=== PATIENT | male | born 1935 | race Caucasian/White ===

== ENCOUNTER → 2018-09-24 14:18 | Outpatient (CLI) | payer MEDICARE, SELFPAY | PROVIDERS: PCP Internal Medicine; Visit Provider Family Medicine | DX: S81.801A Unspecified open wound, right lower leg, initial encounter (principal); E11.622 Type 2 diabetes mellitus with other skin ulcer; I73.9 Peripheral vascular disease, unspecified; Z99.2 Dependence on renal dialysis | CPT/HCPCS: 11043; 87070; 87075; 87205; 93922; 99203; 99212 ==

== ENCOUNTER → 2018-10-01 10:40 | Outpatient (CLI) | payer MEDICARE, SELFPAY | PROVIDERS: PCP Internal Medicine; Visit Provider Family Medicine | DX: I70.238 Atherosclerosis of native arteries of right leg with ulceration of other part of lower leg (principal); L97.815 Non-pressure chronic ulcer of other part of right lower leg with muscle involvement without evidence of necrosis; E11.622 Type 2 diabetes mellitus with other skin ulcer; Z99.2 Dependence on renal dialysis | CPT/HCPCS: 97597 ==

== ENCOUNTER → 2018-10-09 13:12 | Outpatient (CLI) | payer MEDICARE, SELFPAY | PROVIDERS: PCP Internal Medicine; Visit Provider Family Medicine | DX: I70.238 Atherosclerosis of native arteries of right leg with ulceration of other part of lower leg (principal); L97.815 Non-pressure chronic ulcer of other part of right lower leg with muscle involvement without evidence of necrosis | CPT/HCPCS: 99213 ==

== ENCOUNTER → 2018-10-15 14:48 | Outpatient (CLI) | payer MEDICARE, SELFPAY | PROVIDERS: PCP Internal Medicine; Visit Provider Family Medicine | DX: E11.622 Type 2 diabetes mellitus with other skin ulcer (principal); L97.813 Non-pressure chronic ulcer of other part of right lower leg with necrosis of muscle; I73.9 Peripheral vascular disease, unspecified; Z99.2 Dependence on renal dialysis | CPT/HCPCS: 11043 ==

== ENCOUNTER → 2018-10-23 10:28 | Outpatient (CLI) | payer MEDICARE, SELFPAY | PROVIDERS: PCP Internal Medicine; Visit Provider Family Medicine | DX: I70.238 Atherosclerosis of native arteries of right leg with ulceration of other part of lower leg (principal); L97.815 Non-pressure chronic ulcer of other part of right lower leg with muscle involvement without evidence of necrosis; E11.622 Type 2 diabetes mellitus with other skin ulcer | CPT/HCPCS: 11042 ==

== ENCOUNTER → 2018-10-31 10:13 | Outpatient (CLI) | payer MEDICARE, SELFPAY | PROVIDERS: PCP Internal Medicine; Visit Provider Family Medicine | DX: I70.238 Atherosclerosis of native arteries of right leg with ulceration of other part of lower leg (principal); L97.812 Non-pressure chronic ulcer of other part of right lower leg with fat layer exposed | CPT/HCPCS: 97597 ==

== ENCOUNTER → 2018-11-13 14:07 | Outpatient (CLI) | payer MEDICARE, SELFPAY | PROVIDERS: PCP Internal Medicine; Visit Provider Family Medicine | DX: E11.622 Type 2 diabetes mellitus with other skin ulcer (principal); I70.238 Atherosclerosis of native arteries of right leg with ulceration of other part of lower leg; L97.812 Non-pressure chronic ulcer of other part of right lower leg with fat layer exposed | CPT/HCPCS: 11042 ==

== ENCOUNTER → 2018-11-19 15:19 | Outpatient (CLI) | payer MEDICARE, SELFPAY | PROVIDERS: PCP Internal Medicine; Visit Provider Family Medicine | DX: E11.622 Type 2 diabetes mellitus with other skin ulcer (principal); L97.813 Non-pressure chronic ulcer of other part of right lower leg with necrosis of muscle; I73.9 Peripheral vascular disease, unspecified; Z99.2 Dependence on renal dialysis | CPT/HCPCS: 99213 ==

== ENCOUNTER → 2018-12-03 10:27 | Outpatient (CLI) | payer MEDICARE, SELFPAY | PROVIDERS: PCP Internal Medicine; Visit Provider Family Medicine | DX: I70.238 Atherosclerosis of native arteries of right leg with ulceration of other part of lower leg (principal); L97.811 Non-pressure chronic ulcer of other part of right lower leg limited to breakdown of skin | CPT/HCPCS: 99213; 99214 ==

== ENCOUNTER → 2018-12-10 09:44 | Outpatient (CLI) | payer MEDICARE, SELFPAY | PROVIDERS: PCP Internal Medicine; Visit Provider Family Medicine | DX: I70.238 Atherosclerosis of native arteries of right leg with ulceration of other part of lower leg (principal); L97.811 Non-pressure chronic ulcer of other part of right lower leg limited to breakdown of skin; Z99.2 Dependence on renal dialysis | CPT/HCPCS: 99213 ==

== ENCOUNTER → 2018-12-19 10:15 | Outpatient (CLI) | payer MEDICARE, SELFPAY | PROVIDERS: PCP Internal Medicine; Visit Provider Family Medicine | DX: R60.0 Localized edema (principal); Z99.2 Dependence on renal dialysis | CPT/HCPCS: 99212 ==

== ENCOUNTER → 2021-02-11 14:40 | Outpatient (CLI) | payer MEDICARE, SELFPAY | PROVIDERS: PCP Internal Medicine; Referring Provider Internal Medicine; Visit Provider Family Medicine | DX: I73.9 Peripheral vascular disease, unspecified (principal); L97.511 Non-pressure chronic ulcer of other part of right foot limited to breakdown of skin; R60.0 Localized edema; L53.8 Other specified erythematous conditions; E11.622 Type 2 diabetes mellitus with other skin ulcer | CPT/HCPCS: 97597; 99213; 99214 ==

== ENCOUNTER → 2021-02-11 | Outpatient (CLI) | payer MEDICARE, SELFPAY ==
--- OUTSIDE RECORDS SUMMARY | 2021-02-15 08:00 | XMS_ITS | Referral Summary ---
:1935 Author Organization [facility] Address [address] [place] [address] Care Team Providers Name Role Phone MD Ronaldo Primary Care Provider Reason for Referral Evaluate and Treat (Routine) - Authorized Specialty Diagnoses / Procedures Referred By Contact Refer red To Contact Wound Care Diagnoses Peripheral arterial disease ([facility]) Open wound of toe, initial encounter Dylan Higgins MD [facility] [address] [place], [place] [address] [place] [address] Referral ID Status Reason Start Date Expiration Date Visits V isits Requested Authorized [id number] Authorized 02/02/2021 01/28/2022 15 15 Scheduling [facility] wound care- Dr. Will Encounter Details Date Type Department Care Team Description 02/01/2021 Patient Message [facility] Dylan Higgins MD Referral for [facility] Internal [address] for wound Medicine Residency [place], [place] [address] [address] [place], [place] [phone] (Work) [phone] Allergies No known active allergiesdocumented as of this encounter (statuses as of 02/14/2021) Medications Medication Sig Dispensed Refills Start Date End Date Status aspirin 81 mg EC Take 81 mg by 0 02/25/2017 Active tablet mouth nightly cholecalciferol, Take 5,000 Units 0 Active vitamin D3, (VITAMIN by mouth daily D3) 5,000 unit tablet BEBETO-NARESH 0.8 mg Take 1 tablet by 0 04/10/2018 Active tablet mouth nightly miscellaneous medical Face strap for 1 each 0 05/20/2018 Active supply CPAP machine miscIndications: TANK (obstructive sleep apnea) calcium carbonate EX Take 750 mg by 0 Active (TUMS EX) 300 mg (750 mouth 3 (three) mg) chewable tablet times a day with meals senna (SENOKOT) 8.6 Take 1 tablet by 0 Active mg tablet mouth daily polyethylene glycol Take 17 g by 0 Active (GLYCOLAX) 17 gram mouth daily as packet needed (constipation) furosemide (LASIX) 80 Take 2 tablets 60 tablet 3 08/17/2018 Active mg tablet (160 mg total) by mouth daily nitroglycerin Place 1 tablet 25 tablet 0 06/24/2019 Active (NITROSTAT) 0.4 mg SL under tongue tablet every 5 minutes as needed for chest pain. Maximum 3 tablets. If third tablet is needed, call 911. blood sugar Use to test 100 strip 3 07/30/2019 Activ e diagnostic (glucose blood glucose blood) strip levels once daily for diabetes. lisinopriL (PRINIVIL) Take 1 tablet by 0 Active 10 mg tablet mouth daily Lacto.acidophilus-Bif Take 1 capsule 0 Active .animalis 32 billion by mouth cell capsule methoxy peg-epoetin Inject 30 mcg 0 06/10/2020 Active beta (MIRCERA INJ) under the skin acetylcysteine (NAC) Take 600 mg by 0 Active 600 mg capsule mouth 2 (two) times a day fluorouraciL (EFUDEX) Apply topically 40 g 0 09/10/2020 0 09/10/2021 Active 5 % cream 2 (two) times a day gentamicin APPLY DAILY TO 0 10/06/2020 Act ludmila (GARAMYCIN) 0.1 % PD (PERITONEAL cream DIALYSIS) SITE AFTER CLEANING SITE glipiZIDE (GLUCOTROL) Take 5 mg by 0 10/14/2020 05/2 Active 5 mg tablet mouth daily amiodarone (PACERONE) Take 100 mg by 0 Active 100 mg tablet mouth daily amLODIPine (NORVASC) Take 1 tablet (5 90 tablet 3 01/11/2021 0 01/11/2022 Active 5 mg tablet mg total) by mouth daily clopidogreL (PLAVIX) Take 1 tablet 90 tablet 3 01/11/202112/26 Active 75 mg tablet (75 mg total) by mouth daily isosorbide Take 1 tablet 90 tablet 3 01/11/2021 01/11/2022 Act ludmila mononitrate (IMDUR) (60 mg total) by 60 mg 24 hr tablet mouth once daily metoprolol succinate Take 1 tablet 180 tablet 3 01/11/2021 Active XL (TOPROL-XL) 25 mg (25 mg total) by 24 hr tablet mouth 2 (two) times a day rosuvastatin Take 1 tablet 90 tablet 3 01/11/2021 01/11/2022 A ctive (CRESTOR) 20 mg (20 mg total) by tablet mouth every evening methoxy peg-epoetin Inject 50 mcg 0 01/06/2021 Active beta (MIRCERA INJ) under the skin documented as of this encounter (statuses as of 02/14/2021) Active Problems Problem Noted Date Medicare annual wellness visit, subsequent 01/19/2021 Last Assessment & Plan: Patient advised to bring a copy of advan roxy directives to be scanned in the chart. Up-to-date on all immunizations except S hingrix and is advised to get it at the pharmacy. Peripheral arterial disease 08/19/2020 Last Assessment & Plan: - If you do not hear back from your refe rral for vascular surgery, then contact my office, so I can place a referral down to vascular surgery down in [place]. 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 Start 600 mg once daily and increase as you can tolerate this supplement. - Contact Neurology if you develop any u nwanted side effects. - I recommend washing and checking your feet on a daily basis. You may purchase a foot bath with a massager, but be sure the water is not too hot since neuropathy makes it difficult to sense the temper ature in the feet, and may increase your risk of subramanian. - Avoid going on ladders, heights and dr ivmumtaz. - Follow up with podiatry for routine di abetic foot care. A referral was placed at today's visit. - Contact Neurology if you develop any n ew or worsening neurologic symptoms. - Follow up with Neurology in 6 months. Onychomycosis of foot with other complication 08/20/19 21 Ataxia 08/19/2020 Last Assessment & Plan: - Follow up with at home physical therap y for further evaluation and management of your condition. A referral was placed at today's visit. Aphasia 01/15/2020 Overview: See note Last Assessment & Plan: - Follow up with at home speech therapy for further evaluation and management of your condition. A referral was placed at today's visit. Visual field defect 01/15/2020 Overview: See note Last Assessment & Plan: - Please see the opthalmologist before y ou can start driving. However, from a neurological perspective, you are clear to drive. - I recommend avoiding ladders or height s Constipation due to outlet dysfunction 06/13/2019 Obstipation 06/13/2019 Small bowel obstruction, partial 06/10/2019 Last Assessment & Plan: Resolved with conservative management in the hospital. Patient currently taking senna and MiraLAX on a regular basis to prevent constipation. No nausea, vomiting. Normal appetite. S/P TAVR (transcatheter aortic valve replacement) 04/27 Last Assessment & Plan: - Doing well since TAVR placed. Patient has no concerning symptoms, including shortness of breath or chest pain. - Has follow-up with cardiology schedule d early May. Acute cerebrovascular accident 05/12/2019 Overview: See Note Last Assessment & Plan: - Continue on your regimen of aspirin 81 mg EX daily, Plavix 75 mg daily, metoprolol 25 mg daily, and rosuvastatin 20 mg each evening for management of your risk of stroke. - Contact your prescribing provider if y ou develop any unwanted side effects. - Continue on your regimen of speech the rapy. - Contact Neurology if you develop any n ew or worsening neurologic symptoms. - Follow up with Neurology in 6 months. Bilateral carotid artery stenosis 03/11/2019 Non-rheumatic mitral regurgitation 08/21/2018 AICD discharge 08/14/2018 Defibrillator discharge 08/14/2018 Influenza A 08/11/2018 Last Assessment & Plan: Newly recognized, somewhat improving. Gi eduardo his immunocompromised status due to chronic kidney disease, I'm inclined to extend his treatment for another 5 days. He is given a 30 mg dose of oseltamivir t o be given this Sunday. At renal dosi , this should be good for the next 5 days. Discussed ED precautions. Ischemic cardiomyopathy 08/09/2018 Last Assessment & Plan: Chronic, followed by cardiology closely. Continue medical management. Anemia in chronic kidney disease 07/18/2018 Peritoneal dialysis catheter in place 05/20/2018 Male hypogonadism 05/20/2018 Last Assessment & Plan: Newly recognized, symptomatic. Repeat te stosterone testing and consider supplementation after a thorough discussion of risks vs benefits. Non-intractable vomiting with nausea 05/08/2018 Neoplasm of skin of lower leg 04/25/2018 ESRD (end stage renal disease) 09/11/2017 Overview: Added automatically from request for ernestina marla [id number] Last Assessment & Plan: Renal condition is unchanged. Continue current treatment regimen. 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 Hurtado Renal condition will be reassessed in 6 months. Secondary hyperparathyroidism of renal origin 09/01/19 Last Assessment & Plan: Underlying end-stage renal disease, on h ome peritoneal dialysis. Followed by Dr. Hurtado in nephrology. Abscess 06/12/2017 Coronary artery disease 05/31/2017 Overview: Overview: Last Assessment & Plan: Continue with current medications. Last Assessment & Plan: Coronary artery disease is stable. Foll owed by cardiology. Continue current medications. S/P coronary artery stent placement 05/31/2017 ESRD (end stage renal disease) on dialysis 05/29/2017 Overview: Overview: Last Assessment & Plan: Renal condition is improving with treatm ent. Continue current treatment regimen. Treatment per Nephrology Renal condition will be reassessed 4 mon ths. Overview: Added automatically from request for ernestina gutiérrez [id number] Last Assessment & Plan: Renal condition is unchanged. Continue current treatment regimen. 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 Hurtado Renal condition will be reassessed in 6 months. Last Assessment & Plan: On home peritoneal dialysis-followed by Dr. Hurtado. Patient having increased generalized weakness, increased fall risk. Order placed for home health physical therapy and bath aide. Ischemia 04/03/2017 CHF (congestive heart failure) 03/19/2017 Last Assessment & Plan: Ischemic cardiomyopathy. Currently foll owed by cardiology, continue medical management. 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 His dry weight i s 198 lbs and I have advised restarting diuretic therapy at furosemide 40 mg every day starting Sunday. Continue with with cardiac rehabilitation. Re-evaluate with BMP in one week. Syncope 03/02/2017 Overview: 12/07/2016 Overview: Overview: 12/07/2016 Cardiomyopathy, ischemic 03/02/2017 Overview: 12/07/2016 EF post PCI is 50-55%. NYHA class IIIa, ACC stage C Overview: Overview: 12/07/2016 EF post PCI is 50-55%. NYHA class IIIa, ACC stage C Last Assessment & Plan: Continue treatment under Cardiology zahira syed. He appears euvolemic today. Last Assessment & Plan: Continue treatment under Cardiology zahira floresalverto. He appears euvolemic today. Diabetes 03/02/2017 Overview: Overview: Last Assessment & Plan: Established, at goal (less than 7). Give n his CKD and CHF, will defer treatment with oral hypoglycemic agents at this time and continue with lifestyle therapy (exercise and diet). Continue blood glucose checks. Last Assessment & Plan: Established, at goal (less than 7). Give n his CKD and CHF, will defer treatment with oral hypoglycemic agents at this time and continue with lifestyle therapy (exercise and diet). Continue blood glucose checks. Essential hypertension 03/02/2017 Overview: Overview: Last Assessment & Plan: Hypertension is improving with treatment . Continue current treatment regimen. Dietary sodium restriction. Regular aerobic exercise. Blood pressure will be reassessed at the next regular appointment. Last Assessment & Plan: Hypertension is improving with treatment . Continue current treatment regimen. Dietary sodium restriction. Regular aerobic exercise. Blood pressure will be reassessed at the next regular appointment. Benign hypertensive heart and kidney disease with park maintenance technician rohith kidney disease, 02/29/2016 stage III Last Assessment & Plan: Renal condition is worsening. Monitor daily weight. Continue current medications. Renal condition will be reassessed in 2 months. Chronic kidney disease, stage III (moderate) 6 Overview: Overview: Last Assessment & Plan: Renal condition is worsening. Monitor daily weight. Continue current medications. Renal condition will be reassessed in 2 months. Last Assessment & Plan: Formatting of this note may be different from the original. Renal condition is improving with treatm ent. Continue current treatment regimen. Renal condition will be reassessed 8 wee ks. Lab Results Component Value Date CREATININE 2.21 (H) 03/06/2017 EGFR 27 (L) 03/06/2017 EGFR 31 (L) 03/06/2017 Last Assessment & Plan: Renal condition is improving with treatm ent. Continue current treatment regimen. Renal condition will be reassessed 8 wee ks. 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 Treatment: Rx changes: none Current medications reviewed in context of patient's current conditions, side effects, and drug-drug interactions. Labs reviewed for hyperglycemia and elevated liver tests. Continue diet and exercise at current doses. Compliance at present is estimated to be good. Efforts to improve compliance (if necessary) will be directed at increased exercise. Testing: Testing: care of KD; FSBG daily for next 2 weeks Education: Discussed importance of regular exercise (at least 150 minutes/week) and an appropriate diet with minimal to no processed starches and sugars. Follow up: 6 months Last Assessment & Plan: Most recent hemoglobin A1c 8% in November is year. Currently using glipizide 5 mg once a day. Continue to monitor blood sugar closely. Patient is followed by podiatry for diabetic foot care. Up-to-date on diabetic eye exam. TANK (obstructive sleep apnea) 02/29/2016 Last Assessment & Plan: Chronic, stable. Continue with CPAP use. Rx for mask strap given. Sciatica of right side 06/21/2015 Mixed hyperlipidemia 05/15/2012 Overview: Overview: Last Assessment & Plan: The data on secondary prevention of CHD in patients on ESRD patients is unequivocal. At this point, after discussion, he has agreed to decrease rosuvastatin to 20 mg tablet on ce daily. Plan to eventually decrease this to 10 mg tablet once daily. Last Assessment & Plan: The data on secondary prevention of CHD in patients on ESRD patients is unequivocal. At this point, after discussion, he has agreed to decrease rosuvastatin to 20 mg tablet on ce daily. Plan to eventually decrease this to 10 mg tablet once daily. Carotid artery disease 11/15/2011 History of carotid endarterectomy 11/15/2011 documented as of this encounter (statuses as of 02/14/2021) Resolved Problems Problem Noted Date Resolved Date Chronic obstructive pulmonary disease 10/22/2020 Nonrheumatic aortic valve stenosis 08/21/201805/12 Chronic renal impairment, stage 5 05/31/20172017 Pericardial hematoma 05/29/2017 05/20/2018 Acute on chronic systolic heart failure 03/08/2017 05/20/2018 Last Assessment & Plan: Established, improving. His dry weight i s 198 lbs and I have advised restarting diuretic therapy at furosemide 40 mg every day starting Sunday. Continue with with cardiac rehabilitation. Re-evaluate with BMP in one week. Ventricular tachycardia 03/02/2017 08/21/2018 Overview: 12/07/2016 Overview: Overview: 12/07/2016 documented as of this encounter (statuses as of 02/14/2021) Immunizations Name Administration Dates Next Due FLU High Dose 65+ (Fluzone) 02/19/2020, 03/20/2019, 02/28/20 19, 03/11/2018, 03/08/2017, 04/03/2016, 04/01/2015, 06/15/2014 Hep B, Adult (Engerix,Recombivax) 06/23/2019 Influenza Quadrivalent Recombinant 03/06/2018 Preservative Free Influenza, Quadrivalent 03/06/2018, 06/15/2014, 03/25/2013, 05/17/2012, 03/24/2011 Influenza, Seasonal, Injectable 04/05/2010, 02/23/2009 Live Zoster (Zostavax) 08/31/2014 Moderna SARS-CoV-2 Vaccine 07/25/2020, 06/27/2020 Pneumococcal Conjugate PCV13 04/01/2015 ([id number]) Pneumococcal Polysaccharide PPV23 02/04/2013 ([id number]) Tdap (Boostrix,Adacel) 11/15/2011 documented as of this encounter Social History Tobacco Use Types Packs/Day Years Used Date Former Smoker Cigars 10 Smokeless Tobacco: Never Used Comments: 1 Cigars Alcohol Use Standard Drinks/Week Comments Yes 3 (1 standard drink = 0.6 oz pure alcoho l) Sex Assigned at Date Recorded Not on file Job Start Date Occupation Industry Not on file Not on file Not on file documented as of this encounter Miscellaneous Notes Telephone Encounter - Karmen Wilkerson MA - 02/01/2021 5:11 PM PDT Referral pended. documented in this encounter Plan of Treatment Upcoming Encounters Date Type Specialty Care Team Description 02/16/2021 Office Visit Neurology Jimi Mujica M D [address] [place], [place] [phone] (Wo rk) 03/10/2021 Office Visit Podiatry Kannan Dale DPM [address] [place] [address] (Wo rk) 06/17/2021 Office Visit Dermatology Alla Patel, [facility] [address] [place], [place] [address] (Wo rk) Scheduled Referrals Name Type Priority Associated Diagnoses Order S chedule XTRNL Referral to Outpatient Referral Routine Peripheral arter ial Ordered: Wound Care disease ([facility] ) 02/02/2021 Open wound of toe, initial encounter documented as of this encounter Implants Implanted Type Area Human Resources Department Supervisor Device Shelf Expiration Model / Identifier Date Serial / Lot Icd-10/24/[address] [facility] [id number] ELLIPSE(TM) VR / Implanted: 10/24/2016 (Quantity not on file) [id number] / documented as of this encounter Visit Diagnoses Diagnosis Peripheral arterial disease ([facility]) - Primary Unspecified peripheral vascular disease Open wound of toe, initial encounter documented in this encounter Insurance Payer Benefit Plan / Subscriber ID Effective Phone Address T ype Group Dates MEDICARE MEDICARE PART [id number] 1999-Prese [phone] [address] [place] [address] 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 Explanati on Advance Directives and Living 06/15/2017 3:37 PM Will Latest Code Status on File Code Status Date Activated Date Inactivated Comments Full Code 06/10/2019 10:46 PM 06/13/2019 8:40 PM Full Code 01/31/2019 3:42 PM 02/01/2019 2:33 AM Full Code 08/15/2018 2:25 AM 08/17/2018 2:56 PM Full Code 08/09/2018 7:12 PM 08/11/2018 2:42 PM Full Code 04/03/2017 2:14 AM 04/04/2017 6:11 PM Care Teams Revenue Cycle Manager Relationship Specialty Start Date End Date Dylan Higgins MD PCP - General Internal Medicine 06/10/[address] [place] [id number] documented as of this encounter
== END ==
PROVIDERS: PCP Internal Medicine; Referring Provider Internal Medicine; Visit Provider Nurse Practitioner Family
DX: I73.9 Peripheral vascular disease, unspecified (principal); L97.511 Non-pressure chronic ulcer of other part of right foot limited to breakdown of skin; R60.0 Localized edema; L53.8 Other specified erythematous conditions; E11.622 Type 2 diabetes mellitus with other skin ulcer

== ENCOUNTER → 2021-02-18 10:50 | Outpatient (CLI) | payer MEDICARE, SELFPAY | PROVIDERS: PCP Internal Medicine; Referring Provider Internal Medicine; Visit Provider Nurse Practitioner Family | DX: I73.9 Peripheral vascular disease, unspecified (principal); L97.511 Non-pressure chronic ulcer of other part of right foot limited to breakdown of skin; R60.0 Localized edema | CPT/HCPCS: 73660; 99213 ==

== ENCOUNTER → 2021-02-18 11:31 | Outpatient (CLI) | payer MEDICARE, SELFPAY ==
--- NOTE | 2021-02-18 | DI.RAD.S_ITS ---
PROCEDURE: XR TOE RT MIN 2V INDICATIONS: Non-pressure chronic ulcer of other part of right foot with TECHNIQUE: 3 views of the 1st toe(s) acquired. COMPARISON: None. FINDINGS: Bones: No fractures or dislocations. No suspicious bony lesions. Mild cortical irregularity and lucency involving the tuft of the 1st distal phalanx with adjacent soft tissue ulceration. Background osteoarthritic changes. Soft tissues: No suspicious soft tissue densities. IMPRESSION: Findings suspicious for early osteomyelitis involving the tuft of the 1st distal phalanx with associated adjacent soft tissue ulceration. Dictated by: Heber HARO Interpreted: Suman Samuels MD on 02/18/2021 at 11:56 Transcribed by: ADEN on 02/18/2021 at 11:58 Approved by: Herbert Samuels M.D. on 02/20/2021 at 7:42
== END ==
PROVIDERS: PCP Internal Medicine; Referring Provider Nurse Practitioner Family; Visit Provider Nurse Practitioner Family
DX: L97.519 Non-pressure chronic ulcer of other part of right foot with unspecified severity (principal)
CPT/HCPCS: 73660

== ENCOUNTER → 2021-03-04 11:13 | Outpatient (CLI) | payer MEDICARE, SELFPAY | PROVIDERS: PCP Internal Medicine; Referring Provider Internal Medicine; Visit Provider Nurse Practitioner Family | DX: L97.519 Non-pressure chronic ulcer of other part of right foot with unspecified severity (principal); I70.235 Atherosclerosis of native arteries of right leg with ulceration of other part of foot; I25.5 Ischemic cardiomyopathy; Z99.2 Dependence on renal dialysis; N18.6 End stage renal disease | CPT/HCPCS: 99213; 99214 ==

== ENCOUNTER → 2021-03-18 13:06 | Outpatient (CLI) | payer MEDICARE, SELFPAY | PROVIDERS: PCP Internal Medicine; Referring Provider Internal Medicine; Visit Provider Family Medicine | DX: I70.235 Atherosclerosis of native arteries of right leg with ulceration of other part of foot (principal); L97.511 Non-pressure chronic ulcer of other part of right foot limited to breakdown of skin; I25.5 Ischemic cardiomyopathy; Z99.2 Dependence on renal dialysis; N18.6 End stage renal disease | CPT/HCPCS: 99213; 99214 ==

== ENCOUNTER → 2021-04-01 13:01 | Outpatient (CLI) | payer MEDICARE, SELFPAY | PROVIDERS: PCP Internal Medicine; Referring Provider Internal Medicine; Visit Provider Family Medicine | DX: I73.9 Peripheral vascular disease, unspecified (principal); L97.511 Non-pressure chronic ulcer of other part of right foot limited to breakdown of skin; E11.622 Type 2 diabetes mellitus with other skin ulcer; M86.9 Osteomyelitis, unspecified; Z99.2 Dependence on renal dialysis; N18.6 End stage renal disease; E11.59 Type 2 diabetes mellitus with other circulatory complications | CPT/HCPCS: 99212; 99213 ==

== ENCOUNTER → 2021-04-15 12:52 | Outpatient (CLI) | payer MEDICARE, SELFPAY | PROVIDERS: PCP Internal Medicine; Referring Provider Internal Medicine; Visit Provider Family Medicine | DX: I70.235 Atherosclerosis of native arteries of right leg with ulceration of other part of foot (principal); L97.511 Non-pressure chronic ulcer of other part of right foot limited to breakdown of skin; I25.5 Ischemic cardiomyopathy; Z99.2 Dependence on renal dialysis; N18.6 End stage renal disease; M86.9 Osteomyelitis, unspecified | CPT/HCPCS: 99212; 99213 ==

== ENCOUNTER → 2021-05-06 13:07 | Outpatient (CLI) | payer MEDICARE, SELFPAY | PROVIDERS: PCP Internal Medicine; Referring Provider Internal Medicine; Visit Provider Nurse Practitioner Family | DX: L97.519 Non-pressure chronic ulcer of other part of right foot with unspecified severity (principal); M86.9 Osteomyelitis, unspecified; I70.235 Atherosclerosis of native arteries of right leg with ulceration of other part of foot; I25.5 Ischemic cardiomyopathy; Z99.2 Dependence on renal dialysis; N18.6 End stage renal disease | CPT/HCPCS: 99212; 99213 ==

== ENCOUNTER → 2021-06-07 15:19 | Outpatient (CLI) | payer MEDICARE, SELFPAY | PROVIDERS: PCP Internal Medicine; Referring Provider Internal Medicine; Visit Provider Family Medicine | DX: E11.621 Type 2 diabetes mellitus with foot ulcer (principal); L97.512 Non-pressure chronic ulcer of other part of right foot with fat layer exposed; M86.9 Osteomyelitis, unspecified; E11.52 Type 2 diabetes mellitus with diabetic peripheral angiopathy with gangrene; L08.89 Other specified local infections of the skin and subcutaneous tissue; E11.40 Type 2 diabetes mellitus with diabetic neuropathy, unspecified; Z87.891 Personal history of nicotine dependence; E11.22 Type 2 diabetes mellitus with diabetic chronic kidney disease; Z99.2 Dependence on renal dialysis | CPT/HCPCS: 99213; 99214 ==

== ENCOUNTER → 2021-06-07 16:06 | Outpatient (CLI) | payer MEDICARE, SELFPAY ==
[2021-06-07 16:30] LABS: Add Manual Diff / Slide Review NO; Basophils Absolute Auto 100 /uL (0-100); Basophils Percent Auto 0.9 % (0-2); Eosinophils Absolute Auto 200 /uL (0-450); Eosinophils Percent Auto 0.9 % (2-4); Hematocrit 29.5 % (41-53); Hemoglobin 9.8 g/dL (13.5-17.5); Lymphocytes Absolute Auto 2600 /uL (1100-4500); Lymphocytes Percent Auto 14.9 % (25-40); Mean Corpuscular HGB Conc 33.2 % (30-36); Mean Corpuscular Hemoglobin 30.2 PG (26-34); Mean Corpuscular Volume 90.9 fL (80-100); Monocytes Absolute Auto 1200 /uL (0-900); Monocytes Percent Auto 7.1 % (3-14); Neutrophils Absolute Auto 13100 /uL (1500-7000); Neutrophils Percent Auto 76.2 % (50-75); Platelet Count 225 X10^3/uL (150-400); Red Blood Cell Count 3.25 X10^6/uL (4.5-5.9); Red Cell Distribution Width 15.3 % (11.6-14.8); White Blood Cell Count 17.2 X10^3/uL (4.5-11.0)
[2021-06-07 17:11] LABS: Erythrocyte Sedimentation Rate > 140 MM/HR (0-15)
[2021-06-07 17:15] LABS: Alanine Aminotransferase 53 IU/L (<50); Albumin 3.4 g/dL (3.5-5.0); Albumin Globulin Ratio 1.2 (1.0-2.8); Alkaline Phosphatase 80 U/L (38-126); Aspartate Aminotransferase 35 IU/L (17-59); Bilirubin Total 0.3 mg/dL (0.2-1.3); Blood Urea Nitrogen 41 mg/dL (9-20); C-Reactive Protein Quant 5.7 mg/dL (<1.0); Calcium 9.7 mg/dL (8.4-10.2); Carbon Dioxide 30 mmol/L (22-32); Chloride 90 mmol/L (98-107); Estimated Glomerular Filt Rate 7.7 mL/min (>60); Globulin 2.8 g/dL (1.7-4.1); Glucose 159 mg/dL (80-110); HEMOLYSIS < 15 (0-50); Potassium 3.9 mmol/L (3.4-5.1); Sodium 133 mmol/L (137-145); Total Protein 6.2 g/dL (6.3-8.2)
== END ==
PROVIDERS: PCP Internal Medicine; Referring Provider Family Medicine; Visit Provider Family Medicine
DX: L97.519 Non-pressure chronic ulcer of other part of right foot with unspecified severity (principal); I25.10 Atherosclerotic heart disease of native coronary artery without angina pectoris; M86.9 Osteomyelitis, unspecified
CPT/HCPCS: 36415; 80053; 85025; 85651; 86140; 93005; 93010; 99213